=== PATIENT | female | born 1990 ===

== ENCOUNTER → 2019-12-29 14:01 | Outpatient (CLI) | payer BC | END | disposition home or self-care (01) | LOC: LAB 14:01 | PROVIDERS: ATTEND Emergency Medicine Pediatric Emergency Medicine | DX: Z20.828 Contact with and (suspected) exposure to other viral communicable diseases (principal); Z03.818 Encounter for observation for suspected exposure to other biological agents ruled out ==

== ENCOUNTER 2020-03-15 15:27 | Emergency (ER) | payer OTHER ==
[~2020-03-15] VITALS: Ht 165.1 cm; Wt 72.6 kg
== END 2020-03-15 18:46 | disposition home or self-care (01) ==
LOC: ER 15:27
DX: O20.8 Other hemorrhage in early pregnancy (principal); Z3A.01 Less than 8 weeks gestation of pregnancy